=== PATIENT | female | born 1990 | race African-American/Black ===

== ENCOUNTER 2025-01-15 05:44 | Day surgery (SDC) | payer OTHER ==
[2025-01-12 13:48] VITALS: BMI 36.2
[2025-01-15] MEDS ORDERED: LIDOCAINE HCL/PF 1% SDV 5ML VIAL ONE (07:54)
[2025-01-15] MEDS ORDERED: DEXAMETHASONE SOD PHOSPHATE 10 MG/1 ML VIAL ONE (07:54)
[2025-01-15] MEDS: LIDOCAINE HCL 1% PRESERVATIVE FREE - 30ML VIAL IJ ONE (11:22)
[2025-01-15] MEDS: IOHEXOL 180 MG/1 ML ML IJ ONE (11:25)
[2025-01-15] MEDS: DEXAMETHASONE SOD PHOSPHATE 10 MG/1 ML VIAL IVPUSH ONE (11:27)
[2025-01-15 11:42] VITALS: BP 91/52; PULSE 62; RESP 19; TEMP 98
== END 2025-01-15 12:35 | disposition home or self-care (01) ==
LOC: JASU-SURG 05:44
PROVIDERS: ATTEND Pain Medicine Pain Medicine
PROC: 3E0R3BZ Introduction of Anesthetic Agent into Spinal Canal, Percutaneous Approach (ICD-10-PCS; 2025-01-15)
PROC: 3E0R33Z Introduction of Anti-inflammatory into Spinal Canal, Percutaneous Approach (ICD-10-PCS; principal; 2025-01-15 11:15)
DX: M54.16 Radiculopathy, lumbar region (principal)
CPT/HCPCS: 76000-TC-FY; 81025; J1100